=== PATIENT | male | born 1960 | race Caucasian/White ===

== ENCOUNTER 2024-09-08 08:56 | Emergency (ER) | payer BC, SELFPAY ==
[2024-09-08 09:06] VITALS: BP 175/90
--- NOTE | 2024-09-08 10:06 | ED.GENMED ---
History of Present Illness
General
Chief Complaint: Skin Surface Trauma
Source: patient
Exam Limitations: none
Time Seen by Provider: 09/08/24 09:22
Nursing documentation reviewed up to this point in time: agreed with
History of Present Illness
History of Present Illness:
64-year-old male presenting to the emergency department today with concerns of left elbow laceration that occurred just prior to arrival after slipping in his driveway. Had multiple layers of clothing over the elbow. Able to range normally.
Denies any head trauma no loss of consciousness not on blood thinners.
Review of Systems
Review of Systems
Allergies reviewed?: Yes
All Other Systems: ROS reviewed and negative except as documented in HPI and ROS
Phy Exam
Physical Exam
Physical Exam:
GENERAL: Alert , in no apparent distress
EYE: pupils equal and reactive
NECK: Supple, no significant adenopathy.
ENT: o/p clr, mmm.
CARDIAC: Regular rate and rhythm .
LUNGS: Clear breath sounds bilaterally, no acute respiratory distress, no wheezes/rales/rhonchi
ABDOMEN: Soft, without focal tenderness, no r/g, no cvat
NEUROLOGICAL: Alert and oriented, no focal neuro deficits
SKIN: 2.5 cm laceration subcutaneous in depth overlying the left elbow at the olecranon process no foreign body seen warm and dry, skin intact.
MUSCULOSKELETAL: No edema, well perfused.
PSYCH: Normal and appropriate interaction.
Course
Vital Signs
Initial and Last Documented VS:
Initial Vital Signs
Temp Pulse Resp BP Pulse Ox
97.8 F 89 16 175/90 98
09/08/24 09:06 09/08/24 09:06 09/08/24 09:06 09/08/24 09:06 09/08/24 09:06
Last Documented Vital Signs
Temp Pulse Resp BP Pulse Ox
97.8 F 89 16 175/90 98
09/08/24 09:06 09/08/24 09:06 09/08/24 09:06 09/08/24 09:06 09/08/24 09:06
Procedures
Laceration Closure
Left Elbow:
Status of Wound: clean
Size of Wound in cm: 2.5
Description of Wound Edges: sharp and surrounded by abrasion
Preparation: cleaned with saline
Anesthesia: 1% Lidocaine with epi
Revision/Debridement: minor revision and irrigate-direct pressure
Wound exploration: explored to base- no FB and no tendon involvement
Type of Closure: single layer closure
Skin Closure Material: 4-0 nylon
Number of sutures: 6
MDM/Problems Addressed
MDM/Problems Addressed:
You came to the emergency department today with concerns of a laceration to your left elbow. This was cleaned thoroughly and closed with 6 not dissolving stitches. Please follow closely in 13 to 14 days for suture removal. Return for any
worsening, new or concerning symptoms.
*Critical Care Note
Total Time (30-74mins, 75-104mins- exclusive of procedures): Not Applicable
ED Attending Note
-
Portions of this chart may have been created with voice recognition software.� Occasional wrong word or��sound alike� substitutions may have occurred due to the inherent limitations of voice recognition software.
Discharge Plan
Departure
Patient Disposition: Home (Routine Discharge)
Date of Disposition: 09/08/24
Time of Disposition: 10:08
Patient with high blood pressure during this ER visit?: No
Condition: Good
Covid-19: Not Applicable
Discharge Problem:
Elbow laceration
Instructions: Laceration Repair With Stitches (DC)
Referrals:
Marta Sheppard DO [Family Provider] -
Activity Restrictions/Additional Instructions:
You came to the emergency department today with concerns of a laceration to your left elbow. This was cleaned and closed with 6 stitches. Please keep the area clean covered and follow-up in 12 to 14 days for suture removal. Return for any
worsening, new or concerning symptoms.
Interventions
Interventions:
*Risk Screen - Suicide Last Done: 09/08/24 09:06
*General Assessment Last Done: 09/08/24 09:06
*Neglect/Abuse Screening Last Done: 09/08/24 09:06
*ED COVID-19 Vaccine History Last Done: 09/08/24 09:06
ED-Skin Assessment Last Done: 09/08/24 09:26
Discharge Date and Time
Print Language: FAROESE
[2024-09-08] MEDS: ADACEL 0.5 ML IM (10:14)
== END 2024-09-08 10:21 | disposition home or self-care (01) ==
LOC: EMR 08:56
PROVIDERS: EMERGENCY PHYSICIAN Emergency Medicine; FAMILY PHYSICIAN Internal Medicine
DX: S51.012A Laceration without foreign body of left elbow, initial encounter (principal); W01.0XXA Fall on same level from slipping, tripping and stumbling without subsequent striking against object, initial encounter; Z23 Encounter for immunization
CPT/HCPCS: 99282; 12001; 90471; 90715

== ENCOUNTER 2024-09-12 11:00 | Emergency (ER) | payer BC, SELFPAY ==
[2024-09-12 11:24] VITALS: BP 151/82
--- NOTE | 2024-09-12 12:01 | ED.MUSCINJ ---
HPI-Injury
General
Chief Complaint: Musculo-Skeletal Complaint
Source: patient
Exam Limitations: none
Time Seen by Provider: 09/12/24 11:59
Nursing documentation reviewed up to this point in time: agreed with
History of Present Illness-Injury
Initial Injury comments:
64-year-old male is here for left posterior rib pain. Patient fell 4 days ago in his driveway and came here for laceration of elbow, had no significant other pain at the time, now with left posterior rib pain. Both sides back was sore initially but
not too bad. Turned over in bed 2 nights later and pain increased a lot. Pain has been worse since.
Past History
Past History
ED Past Medical History: None
ED Past Surgical History: None
Social History
Tobacco: Non-smoker
Alcohol: None
Personal:
Living: with family
Employment: Employed
Review of Systems
Review of Systems
Allergies reviewed?: Yes
All Other Systems: ROS reviewed and negative except as documented in HPI and ROS
Constitutional: Denies fever
Respiratory: Denies cough or trouble breathing
Cardiac: Denies chest pain
ABD/GI: Denies abdominal pain
Musculoskeletal: Reports other (Left posterior rib pain mid back)
Skin: Reports no symptoms
Neurological: Reports no symptoms
Phy Exam
Physical Exam
Physical Exam:
GENERAL: No acute distress. A&Ox3.
CONSTITUTIONAL: Afebrile.
RESPIRATORY: Regular respirations, nonlabored, lungs clear.
CARDIOVASCULAR: Regular rate and rhythm, no murmurs, no rubs.
GI: Soft, nontender, normal BS
MUSCULOSKELETAL: Tender mid posterior to lateral back. Moves with ease. Well perfused.
SKIN: Warm, dry, pink
PSYCH: Normal mood and affect. Well kept, interactive and appropriate
NEUROLOGIC: Awake, alert and oriented. No focal neurological deficits
Injury Course
Orders/Labs/Results
Orders:
Orders
09/12/24
Ribs, Left 3 View W/PA Chest CR [CR Ribs-left 3 Vw W/pa Chest] Urgent
Comment:
Reason For Exam: pain after fall
09/12/24 12:58
Ibuprofen [Motrin] 600 mg PO NOW STA
MDM/Problems Addressed
MDM/Problems Addressed:
64-year-old male is here for left posterior rib pain. Patient fell 4 days ago in his driveway and came here for laceration of elbow, had no significant other pain at the time, now with left posterior rib pain. Both sides back was sore initially but
not too bad. Turned over in bed 2 nights later and pain increased a lot. Pain has been worse since.
Rib xray radiology report read:
IMPRESSION:
Minimally displaced left posterior eighth and ninth rib fractures.
No pleural effusion or pneumothorax.
Rib belt applied with stated comfort
Incentive spirometer given with instruction
Pt declines any pain med stronger than Ibuprofen
*Critical Care Note
Total Time (30-74mins, 75-104mins- exclusive of procedures): Not Applicable
ED Attending Note
-
Portions of this chart may have been created with voice recognition software.� Occasional wrong word or��sound alike� substitutions may have occurred due to the inherent limitations of voice recognition software.
Discharge Plan
Departure
Patient Disposition: Home (Routine Discharge)
Date of Disposition: 09/12/24
Time of Disposition: 13:01
Patient with high blood pressure during this ER visit?: Yes
Condition: Good
Discharge Problem:
Rib fractures
Instructions: How to use an incentive spirometer, Rib fracture or bruised rib - ED discharge instructions
Referrals:
Marta Sheppard, DO [Family Provider] - As needed
Activity Restrictions/Additional Instructions:
As we discussed, wear the rib belt if it helps. Using incentive spirometer taking 10 deep breaths an hour while awake for the next week
Ibuprofen 600 mg, with food, every 6 hours as needed for pain
Return here immediately for abdominal pain, difficulty breathing or feeling worse in any way
Interventions
Interventions:
*Risk Screen - Suicide Last Done: 09/12/24 11:30
*General Assessment Last Done: 09/12/24 11:47
*Neglect/Abuse Screening Last Done: 09/12/24 11:30
*ED COVID-19 Vaccine History Last Done: 09/12/24 11:24
*Nursing Disposition Last Done: 09/12/24 13:35
ED-Musculoskeletal Assessment Last Done: 09/12/24 11:46
Discharge Date and Time
Discharge Date/Time: 09/12/24 14:04
Print Language: [id number]
[2024-09-12 13:35] VITALS: BP 146/82
== END 2024-09-12 14:04 | disposition home or self-care (01) ==
LOC: EMR 11:00
PROVIDERS: EMERGENCY PHYSICIAN Student in an Organized Health Care Education/Training Program; FAMILY PHYSICIAN Internal Medicine
DX: S22.42XA Multiple fractures of ribs, left side, initial encounter for closed fracture (principal); W19.XXXA Unspecified fall, initial encounter
CPT/HCPCS: 99283; 71101